=== PATIENT | female | born 1975 | race Caucasian/White ===

== ENCOUNTER 2023-07-03 23:52 | Emergency (ER) | payer BC, SELFPAY ==
[2023-07-04 00:02] VITALS: BP 122/79; PULSE 89; TEMP 36.6; O2SAT 99; BMI 38.6
--- NOTE | 2023-07-04 00:17 | ED_ITS ---
HPI - Eye Problem General Chief complaint: Eye Problems Stated complaint: LT EYE SWELLING Time Seen by Provider: 07/04/23 00:05 Source: patient Mode of arrival: walk-in Limitations: no limitations History of Present Illness HPI Narrative: presents complaining of discomfort left eye. States the eye started watering. She later looked in the mirror and noticed swelling around the eye. Can still see out of the eye but now has a pressure sensation about the eye. No headache or fever. Does not believe any thing got in the eye and was not scratched by her kitten. she also complains of feeling itchy Related Data Home Medications ?Medication ?Instructions ?Recorded ?Confirmed gabapentin 300 mg capsule 300 mg PO Q8H 07/04/23 07/04/23 spironolactone 25 mg tablet 25 mg PO ONCE 07/04/23 07/04/23 Allergies Allergy/AdvReac Type Severity Reaction Status Date / Time amoxicillin Allergy Intermediate Verified 07/04/23 00:08 calamine Allergy Intermediate Verified 07/04/23 00:08 Penicillins Allergy Intermediate Verified 07/04/23 00:08 Review of Systems ROS Status of ROS 10 or more systems reviewed and unremark able except as noted in history and below Exam Constitutional Vital Signs, click to edit/add: Last Vital Signs Temp 98 F 07/04/23 00:02 Pulse 89 07/04/23 00:02 Resp 18 07/04/23 00:02 BP 122/79 07/04/23 00:02 Pulse Ox 99 07/04/23 00:02 O2 Del Method Room Air 07/04/23 00:02 Common normals: no apparent distress, oriented x3, alert and well nourished [facility] Other: left conjunctiva is clear. has periorbital edema nan lower lids. no erythema Eye Common normals: PERRL, EOMs intact bilaterally, conjunctivae normal and no scleral icterus Respiratory Common normals: normal respiratory effort, no retractions, no use of accessory muscles and clear to auscultation bilaterally Cardio Common normals: regular rate, regular rhythm, S1 normal heart sound and S2 normal heart sound Extremity Common normals: normal to inspection and full ROM Neuro Common normals: oriented x3, CN's II-XII intact bilaterally, moves all extremities and no focal motor deficits Psych Appearance: grossly normal Course Vital Signs Vital signs: Vital Signs Temperature 98 F 07/04/23 00:02 Pulse Rate 89 07/04/23 00:02 Respiratory Rate 18 07/04/23 00:02 Blood Pressure 122/79 07/04/23 00:02 Pulse Oximetry 99 07/04/23 00:02 Oxygen Delivery Method Room Air 07/04/23 00:02 Temperature 98 F 07/04/23 00:02 Pulse Rate 89 07/04/23 00:02 Respiratory Rate 18 07/04/23 00:02 Blood Pressure 122/79 07/04/23 00:02 Pulse Oximetry 99 07/04/23 00:02 Oxygen Delivery Method Room Air 07/04/23 00:02 MDM - Eye Problem MDM Narrative Medical decision making narrative: patient presents with acute onset of edema and pressure around her left eye. also has edema. Clinically suspect an allergic reaction because she also complained of itching. Her conjunctiva is clear. Treated with solumedrol and benadryl but also covered for possible cellulitis given the atypical presentation of unilateral periorbital edema and pressure discomfort. Patient feeling better at discharged and edema starting to resolve. Discharged and adivsed of the importance of close followup Lab Data Labs: Lab Results 07/04/23 Range/Units 00:25 WBC 10.5 (4.0-11.0) 10^3/uL RBC 4.65 (4.20-5.40) 10^6/uL Hgb 13.8 (12.0-16.0) g/dL Hct 43.3 (36.0-48.0) % MCV 93.1 (81.0-99.0) fL MCH 29.7 (26.7-34.0) pg MCHC 31.9 (29.9-35.2) g/dL RDW 13.2 (11.0-15.0) % Plt Count 239 (150-450) 10^3/uL MPV 12.2 (9.5-13.5) fL Neut % (Auto) 58.6 (43.0-75.0) % Lymph % (Auto) 32.3 (20.5-60.0) % Mccracken % (Auto) 5.0 (1.7-12.0) % Eos % (Auto) 2.8 (0.9-7.0) % Baso % (Auto) 0.8 (0.2-2.0) % Neut # (Auto) 6.2 (1.4-6.5) 10^3/uL Lymph # (Auto) 3.4 (1.2-3.8) 10^3/uL Mccracken # (Auto) 0.5 (0.3-0.8) 10^3/uL Eos # (Auto) 0.3 (0.0-0.7) 10^3/uL Baso # (Auto) 0.1 (0.0-0.1) 10^3/uL Abs Immat Gran (auto) 0.05 H (0.00-0.03) 10^3/uL Imm/Tot Granulo (auto) 0.5 (0.0-0.5) % ESR 33 H (<=30) mm/hr Sodium 139 (136-145) mmol/L Potassium 3.6 (3.5-5.1) mmol/L Chloride 102 (98-107) mmol/L Carbon Dioxide 27.2 (21.0-32.0) mmol/L Anion Gap 13.4 BUN 13.0 (7.0-18.0) mg/dL Creatinine 0.67 (0.55-1.02) mg/dL Est GFR ( Amer) >60 (>=60) Est GFR (Non-Af Amer) >60 (>=60) BUN/Creatinine Ratio 19.4 Glucose 131 H (74-106) mg/dL Calcium 9.6 (8.5-10.1) mg/dL C-Reactive Protein 1.27 H (<=0.50) mg/dL Discharge Plan Discharge Stand Alone Forms: Portal Instructions Chief Complaint: Eye Problems Clinical Impression: Periorbital cellulitis Patient Disposition: Home, Self-Care Prescriptions / Home Meds: No Action spironolactone 25 mg tablet 25 mg PO ONCE gabapentin 300 mg capsule 300 mg PO Q8H Print Language: Korean Instructions: Periorbital Cellulitis (ED) Additional Instructions: follow up tomorrow for recheck Referrals: KATTY CORRAL [Primary Care Provider] - 1 week
[2023-07-04 00:35] LABS: Basophils Absolute Auto 0.1 10^3/uL (0.0-0.1); Basophils Percent Auto 0.8 % (0.2-2.0); Eosinophils Absolute Auto 0.3 10^3/uL (0.0-0.7); Eosinophils Percent Auto 2.8 % (0.9-7.0); Hematocrit 43.3 % (36.0-48.0); Hemoglobin 13.8 g/dL (12.0-16.0); Immature Granulocytes Abs Auto 0.05 10^3/uL (0.00-0.03); Immature Granulocytes Pct Auto 0.5 % (0.0-0.5); Lymphocytes Absolute Auto 3.4 10^3/uL (1.2-3.8); Lymphocytes Percent Auto 32.3 % (20.5-60.0); Mean Corpuscular HGB Conc 31.9 g/dL (29.9-35.2); Mean Corpuscular Hemoglobin 29.7 pg (26.7-34.0); Mean Corpuscular Volume 93.1 fL (81.0-99.0); Mean Platelet Volume 12.2 fL (9.5-13.5); Monocytes Absolute Auto 0.5 10^3/uL (0.3-0.8); Neutrophils Absolute Auto 6.2 10^3/uL (1.4-6.5); Neutrophils Percent Auto 58.6 % (43.0-75.0); Platelet Count 239 10^3/uL (150-450); Red Blood Count 4.65 10^6/uL (4.20-5.40); Red Cell Distribution Width 13.2 % (11.0-15.0); White Blood Count 10.5 10^3/uL (4.0-11.0)
[2023-07-04] MEDS: METHYLPREDNISOLONE SOD SUCC PF 125 MG/2 ML VIAL IVP (00:35)
[2023-07-04] MEDS: CLINDAMYCIN PHOSPHATE/D5W 900 MG/50 ML PIGGYBACK 100 MG IV (00:35)
[2023-07-04 00:43] LABS: Erythrocyte Sedimentation Rate 33 mm/hr (<=30)
[2023-07-04] MEDS: DIPHENHYDRAMINE HCL 50 MG/ML (1ML) VIAL IV (00:44)
[2023-07-04 00:57] LABS: Anion Gap 13.4; BUN Creatinine Ratio 19.4; Calcium 9.6 mg/dL (8.5-10.1); Carbon Dioxide 27.2 mmol/L (21.0-32.0); Chloride 102 mmol/L (98-107); Estimated GFR (African America >60 (>=60); Estimated GFR (Non-African Ame >60 (>=60); Glucose 131 mg/dL (74-106); Potassium 3.6 mmol/L (3.5-5.1); Sodium 139 mmol/L (136-145)
[2023-07-04 01:10] LABS: C Reactive Protein 1.27 mg/dL (<=0.50)
[2023-07-04 01:51] VITALS: BP 133/73; PULSE 86; O2SAT 99
== END 2023-07-04 01:51 | disposition home or self-care (01) ==
PROVIDERS: Emergency Provider Internal Medicine; PCP Nurse Practitioner
DX: L03.213 Periorbital cellulitis (principal)
CPT/HCPCS: 36415; 80048; 85025; 85652; 86140; 96365; 96375; 99284; J2919